=== PATIENT | female | born 1975 | race Asian ===

== ENCOUNTER 2020-06-23 14:32 | Emergency (ER) | payer OTHER ==
--- NOTE | 2020-06-23 14:50 | TELE ---
HPI Do you have fever,cough or shortness of breath?: No - General Reason For Visit: COVID 19 TEST History Source: Patient Review of Systems - Review of Systems Constitutional: No: Fever *Physical Exam - Physical Exam Respiratory/Chest: negative: Respiratory Distress Discharge Diagnosis at time of Disposition: Encounter for laboratory testing for COVID-19 virus - Referrals Follow-up Referral(s): ON STAFF,NOT [Primary Care Provider] - - Patient Instructions - Discharge Disposition: HOME Condition at time of Disposition: Stable
== END 2020-06-23 14:50 | disposition home or self-care (01) ==
LOC: JVIRT 14:32
DX: Z11.59 Encounter for screening for other viral diseases (principal)
CPT/HCPCS: C9803; Q3014-GT; U0003

== ENCOUNTER 2020-08-01 13:48 | Emergency (ER) | payer OTHER | END 2020-08-01 14:11 | disposition home or self-care (01) | LOC: JVIRT 13:48 | DX: Z03.818 Encounter for observation for suspected exposure to other biological agents ruled out (principal) | CPT/HCPCS: C9803; Q3014-GT; U0003 ==

== ENCOUNTER 2020-08-17 13:29 | Emergency (ER) | payer OTHER | END 2020-08-17 13:57 | disposition home or self-care (01) | LOC: JVIRT 13:29 | DX: Z11.59 Encounter for screening for other viral diseases (principal) | CPT/HCPCS: Q3014-GT ==